=== PATIENT | female | born 1970 | race Caucasian/White ===

== ENCOUNTER → 2017-04-20 | Outpatient (CLI) | payer BC ==
[~2017-04-20] MED LIST: CARISOPRODOL 3350 MG PO; FLEXERIL PO; HYDROCODONE-AP1 EAC6 PO; KEFLEX500 M1 PO; LIDOCAINE 2%2 %/5 GM TOP; NAPROSYN500 MG PO; NORCO 5-325 TA1 EACH PO; PROCTOFOAM-HC F10 GM TOP
== END ==
LOC: M.RAD 12:52
DX: Z12.31 Encounter for screening mammogram for malignant neoplasm of breast (principal)

== ENCOUNTER 2017-09-12 19:29 | Emergency (ER) | payer BC ==
[~2017-09-12] VITALS: Ht 175.3 cm; Wt 83.5 kg
[~2017-09-12 19:29] MED LIST changes: -HYDROCODONE-AP1 EAC6 PO; -KEFLEX500 M1 PO; -LIDOCAINE 2%2 %/5 GM TOP; -PROCTOFOAM-HC F10 GM TOP
[2017-09-12] MEDS ORDERED: KEFLEX500 M1 PO (20:54)
[2017-09-12] MEDS ORDERED: PROCTOFOAM-HC F10 GM TOP (20:54)
[2017-09-12] MEDS ORDERED: HYDROCODONE-AP1 EAC6 PO (20:54)
[2017-09-12] MEDS ORDERED: LIDOCAINE 2%2 %/5 GM TOP (20:54)
[2017-09-12 21:15] VITALS: BP 94/54
== END 2017-09-12 21:16 | disposition home or self-care (01) ==
LOC: M.ERS 19:29
DX: K64.5 Perianal venous thrombosis (principal); Z88.2 Allergy status to sulfonamides

== ENCOUNTER → 2018-06-08 | Outpatient (CLI) | payer OTHER ==
[~2018-06-08] MED LIST changes: +HYDROCODONE-AP1 EAC6 PO; +KEFLEX500 M1 PO; +LIDOCAINE 2%2 %/5 GM TOP; +PROCTOFOAM-HC F10 GM TOP
== END ==
LOC: M.ULTRA 12:54
DX: R10.10 Upper abdominal pain, unspecified (principal); R30.9 Painful micturition, unspecified; Z90.49 Acquired absence of other specified parts of digestive tract

== ENCOUNTER → 2020-10-09 | Outpatient (CLI) | payer OTHER | LOC: M.RAD 08:40 | PROVIDERS: ATTEND Family Medicine | DX: Z12.31 Encounter for screening mammogram for malignant neoplasm of breast (principal) ==